=== PATIENT | male | born 1975 | race Caucasian/White ===

== ENCOUNTER 2019-11-10 06:55 | Outpatient (CLI) | payer BC, OTHER ==
[2019-11-10 14:07] LABS: #Basophils 0.1 thou/uL (0.0-0.2); #Eosinphils 0.1 thou/uL (0.0-0.7); #Lymphocytes 2.5 thou/uL (1.20-3.40); #Monocytes 0.4 thou/uL (0.11-0.59); #Neutrophils 2.4 thou/uL (1.40-6.50); %Basophils 1.3 % (0.0-1.0); %Eosinophils 0.9 % (0.0-10.0); %Monocytes 7.1 % (0.0-10.0); %Neutrophils 44.5 % (42.0-75.0); Hemoglobin 17.8 g/dL (14.0-18.0); Mean Corpuscular HGB CONC 33.1 g/dL (32.0-36.0); Mean Corpuscular Hemoglobin 30.5 pg (27.0-31.0); Mean Platelet Volume 7.9 fL (7.4-10.4); Platelet Count 196 thou/uL (130-400); RBC Distribution Width 12.2 % (11.5-14.5); Red Blood Cell (RBC) Count 5.84 mill/uL (4.70-6.10); White Blood Cell (WBC) Count 5.4 thou/uL (4.8-10.8)
[2019-11-10 14:48] LABS: Anion Gap 14 mmol/L (10-20); BUN (Urea Nitrogen) 12 mg/dL (8.9-20.6); Calc. Creatinine Clearance 0 mL/min (70-130); Calcium 9.8 mg/dL (7.8-10.44); Carbon Dioxide 25 mmol/L (22-29); Chloride 107 mmol/L (98-107); Estimated GFR-MDRD 65; Glucose 98 mg/dL (70-105); Sodium 142 mmol/L (136-145)
[2019-11-11 12:06] LABS: SARS-CoV-2 MS2 Positive; SARS-CoV-2 N Gene Negative; SARS-CoV-2 S Gene Negative; SARS-CoV-2 orf1ab Negative
== END 2019-11-10 06:56 | disposition home or self-care (01) ==
LOC: LABBT 06:55
PROVIDERS: ATTEND Surgery
DX: Z01.812 Encounter for preprocedural laboratory examination (principal); Z11.59 Encounter for screening for other viral diseases; K42.9 Umbilical hernia without obstruction or gangrene; D17.1 Benign lipomatous neoplasm of skin and subcutaneous tissue of trunk
CPT/HCPCS: 80048; 85025; 87635; U0003

== ENCOUNTER 2019-11-15 10:29 | Day surgery (SDC) | payer BC ==
[2019-11-09 10:04] VITALS: BMI 25.1
[2019-11-15] MEDS ORDERED: Acetaminophen 500 MG TAB ONE (10:50)
[2019-11-15] MEDS ORDERED: Ketorolac Tromethamine 30 MG/ML VIAL ONE (10:50)
[2019-11-15] MEDS ORDERED: Bupivacaine 0.25% HCL 30 ML VIAL ONE (11:44)
[2019-11-15] MEDS ORDERED: Lidocaine 1% w/Epinephrine 1:100K 20 ML VIAL ONE (11:44)
[2019-11-15] MEDS ORDERED: Midazolam HCl 2 mg/2 ml Vial ONE (12:00)
[2019-11-15] MEDS ORDERED: Fentanyl 100 MCG/2 ML VIAL ONE (12:00)
[2019-11-15] MEDS ORDERED: HYDROmorphone 0.5 MG/0.5 ML SYRINGE ONE (12:00)
[2019-11-15] MEDS ORDERED: Lidocaine 2% Jelly 5 ML TUBE ONE (12:00)
[2019-11-15] MEDS ORDERED: EPHEDRINE 25 MG/5 ML SYRINGE ONE (14:42)
[2019-11-15] MEDS ORDERED: Ondansetron PF 4 MG/2 ML Vial ONE (14:42)
[2019-11-15] MEDS ORDERED: PHENYLEPHRINE-NS 100 MCG/ML 10 ML SYRINGE ONE (14:42)
[2019-11-15] MEDS ORDERED: Dexamethasone 20 MG/5 ML VIAL ONE (14:42)
[2019-11-15] MEDS ORDERED: Lidocaine 1% PF 5 ML VIAL ONE (14:42)
[2019-11-15] MEDS ORDERED: PROPOFOL 200 MG/20 ML VIAL ONE (14:42)
--- NOTE | 2019-11-16 13:21 | OP ---
DATE OF PROCEDURE: 11/15/2019 PROCEDURES PERFORMED: Repair of umbilical hernia and excision of left upper quadrant abdominal wall lipoma. PREOPERATIVE DIAGNOSES: Umbilical hernia and left upper quadrant abdominal wall lipoma. HISTORY OF PRESENT ILLNESS: Mr. Yi is a 44-year-old man, who has a slowly enlarging lipomatous mass overlying his costal margin in his left upper quadrant. He was incidentally noted on exam to have a reducible umbilical hernia and it was recommend that he undergo repair of the hernia and excision of the lipoma under the same anesthesia. DESCRIPTION OF PROCEDURE: After informed consent was obtained and appropriate preoperative antibiotics administered, the patient was taken to the operating room, where he was placed in supine position and general anesthesia was administered. He was prepped and draped in standard sterile fashion and local anesthesia infused through the skin and subcutaneous tissues at the level of the umbilicus. A circumbilical incision was made and dissection carried down to the hernia sac cavity. The fascial defect was under a centimeter and this was repaired primarily with 0 Vicryl sutures with excellent closure. The wound was irrigated and hemostasis verified. The subcutaneous tissues were closed with 3-0 Monocryl sutures and the skin was closed with 4-0 subcuticular Monocryl suture. Attention was then turned to the large lipoma at the left costal margin. Local anesthesia was infused and a skin incision made over the longitudinal axis of the mass. This was dissected free of the surrounding tissues and excised in its entirety and measured about 8 x 5 x 3 cm in size and appeared to be a well-defined mature lipoma. This was sent to Pathology for diagnosis and the subcutaneous tissues mobilized off the underlying muscle to allow closure without tension. The subcutaneous tissues were reapproximated with interrupted 3-0 Monocryl [id number] sutures and the skin was closed with a running 4-0 subcuticular Monocryl suture. Dermabond dressings were placed to both incisions and pressure dressings were placed once the Dermabond was dry. The patient was extubated and taken to Recovery in good condition with an abdominal binder in place. Estimated blood loss was minimal. There were no complications. SPECIMEN: Left upper quadrant lipoma. Job ID: [id number]
== END 2019-11-15 15:47 | disposition home or self-care (01) ==
LOC: SDC 10:29
PROVIDERS: ATTEND Surgery
PROC: 0WQF0ZZ Repair Abdominal Wall, Open Approach (ICD-10-PCS; principal; 2019-11-15)
PROC: 0JB80ZZ Excision of Abdomen Subcutaneous Tissue and Fascia, Open Approach (ICD-10-PCS; principal; 2019-11-15)
DX: D17.1 Benign lipomatous neoplasm of skin and subcutaneous tissue of trunk (principal); K42.9 Umbilical hernia without obstruction or gangrene
CPT/HCPCS: 88304; J0690; J1100; J1170; J1885; J2250; J2405; J2704; J3010; S0020